=== PATIENT | female | born 2000 | race Caucasian/White ===

== ENCOUNTER 2019-04-19 06:20 | Observation (INO) | payer OTHER ==
[2019-04-19] MEDS: SOD CHLORIDE 0.9% 1,000 ML IV (07:00)
[2019-04-19 07:39] LABS: ADD MAN DIFF? NO
[2019-04-19 07:40] LABS: WHITE BLOOD COUNT 7.8 10^3/ul (4.8-10.8)
[2019-04-19 07:40] LABS: BASOPHILS % 0.4 % (0.0-2.0); EOSINOPHILS # 0.2 10^3/ul (0.0-0.5); EOSINOPHILS % 2.2 % (0.0-7.0); HEMATOCRIT 35.1 % (37.0-47.0); HEMOGLOBIN 10.7 g/dl (12.0-16.0); LYMPHOCYTES % 38.6 % (18.0-55.0); MEAN CORPUSCULAR HEMOGLOBIN 24.7 pg (29.0-33.0); MEAN CORPUSCULAR HGB CONC 30.5 g/dl (32.0-37.0); MEAN CORPUSCULAR VOLUME 80.9 fl (72.0-104.0); MEAN PLATELET VOLUME 9.2 fl (7.4-10.4); MONOCYTE # 0.7 10^3/ul (0.3-0.9); MONOCYTES % 8.8 % (0.0-13.0); NEUTROPHIL # 3.9 10^3/ul (1.6-7.5); NEUTROPHILS % 49.7 % (30.0-74.0); PLATELET COUNT 429 10^3/UL (140-415); RED BLOOD COUNT 4.34 10^6/ul (4.20-5.40); RED CELL DISTRIBUTION WIDTH 14.2 % (11.5-14.5)
[2019-04-19] MEDS: LACTATED RINGER'S 1,000 ML IV ×3 (07:48→20:05)
[2019-04-19 08:00] LABS: ALANINE AMINOTRANSFERASE 26 IU/L (13-69); ALBUMIN 4.3 g/dl (3.3-4.9); ALBUMIN/GLOBULIN RATIO 1.43; ALKALINE PHOSPHATASE 75 IU/L (42-121); ANION GAP 9 (5-13); ASPARTATE AMINO TRANSFERASE 15 IU/L (15-46); BILIRUBIN,INDIRECT 0.3 mg/dl (0-1.1); BILIRUBIN,TOTAL 0.3 mg/dl (0.2-1.3); BLOOD UREA NITROGEN 14 mg/dl (7-20); CALCIUM 9.3 mg/dl (8.4-10.2); CARBON DIOXIDE 26 mmol/L (21-31); CHLORIDE 105 mmol/L (97-110); CREATININE 0.55 mg/dl (0.44-1.00); Estimated GFR > 60 mL/min (>60); GLUCOSE 92 mg/dl (70-220); INR 0.97; POTASSIUM 4.3 mmol/L (3.5-5.1); SODIUM 140 mmol/L (135-144); TOTAL PROTEIN 7.3 g/dl (6.1-8.1)
[2019-04-19 08:01] LABS: PARTIAL THROMBOPLASTIN TIME 32.4 Sec (23.0-35.0)
[2019-04-19] MEDS ORDERED: PROPOFOL 20 ML (09:06)
[2019-04-19] MEDS ORDERED: ONDANSETRON 4 MG INJ ×2 (09:06→12:14)
[2019-04-19] MEDS ORDERED: CEFAZOLIN 1 GM INJ (09:06)
[2019-04-19] MEDS ORDERED: KETOROLAC 30 MG INJ (09:06)
[2019-04-19] MEDS ORDERED: MIDAZOLAM 1 MG/ML 2 ML INJ (09:06)
[2019-04-19] MEDS ORDERED: ROCURONIUM 50 MG INJ (09:06)
[2019-04-19] MEDS ORDERED: LIDOCAINE 1%/EPI (1:100,000) (MDV) 20 ML (09:06)
[2019-04-19] MEDS: CEFAZOLIN 2 GM/50 ML (PMX) 50 ML (FOR WT < 120 KG) IVPB (09:30)
[2019-04-19] MEDS ORDERED: HYDROmorphONE 1 MG/5 ML IV SYRINGE IV (10:30)
[2019-04-19] MEDS ORDERED: PHENYLephrine (100 MCG/ML) 10ML SYG (10:53)
[2019-04-19] MEDS ORDERED: NEOSTIGMINE 3 MG/3 ML SYRINGE (11:26)
[2019-04-19] MEDS ORDERED: GLYCOPYRROLATE 0.4 MG INJ (11:26)
[2019-04-19] MEDS: OXYCODONE/ACETAMINOPHEN (5/325) TAB PO ×3 (12:09→21:48)
[2019-04-19 12:31] LABS: WHITE BLOOD COUNT 27.9 10^3/ul (4.8-10.8)
[2019-04-19 12:31] LABS: ABNORMAL IP MESSAGE 1; HEMATOCRIT 27.9 % (37.0-47.0); HEMOGLOBIN 8.7 g/dl (12.0-16.0); MEAN CORPUSCULAR HEMOGLOBIN 25.1 pg (29.0-33.0); MEAN CORPUSCULAR HGB CONC 31.2 g/dl (32.0-37.0); MEAN CORPUSCULAR VOLUME 80.4 fl (72.0-104.0); MEAN PLATELET VOLUME 9.1 fl (7.4-10.4); PLATELET COUNT 490 10^3/UL (140-415); RED BLOOD COUNT 3.47 10^6/ul (4.20-5.40); RED CELL DISTRIBUTION WIDTH 14.6 % (11.5-14.5)
[2019-04-19 12:32] LABS: HOLD TRANSMISSIONS 1; POSITIVE DIFF @See below
[2019-04-19 12:33] LABS: ADD MAN DIFF? YES
[2019-04-19] MEDS ORDERED: IBUPROFEN 600 MG TAB PO (13:00)
[2019-04-19] MEDS: ONDANSETRON 4 MG INJ IV (13:23)
[2019-04-19 13:43] LABS: ANISOCYTOSIS 1+ (0-0); BAND NEUTROPHILS #M 2.2 10^3/ul (0.0-0.6); BAND NEUTROPHILS % (M) 8 % (0-10); GIANT THROMBO% (M) 1 % (0-0); LYMPHOCYTES #M 2.2 10^3/ul (0.8-2.9); LYMPHOCYTES % (M) 8 % (18-55); MONOCYTE #M 1.6 10^3/ul (0.3-0.9); MONOCYTES % (M) 6 % (0-13); OVALOCYTES 1+ (0-0); PLATELET ESTIMATE NORMAL; PLATELET MORPHOLOGY COMMENT @See below; POIKILOCYTOSIS 1+ (0-0); POLYCHROMASIA 1+ (0-0); RBC MORPHOLOGY COMMENT @See below; REACTIVE LYMPHOCYTES #M 1.3 10^3/ul (0.0-0.0); REACTIVE LYMPHOCYTES% (M) 5 % (0-0); SEGMENTED NEUTROPHILS (M) % 73 % (30-74); SMUDGE%M 8 % (0-0); WBC MORPHOLOGY COMMENT @See below
[2019-04-19 17:15] LABS: ADD MAN DIFF? NO
[2019-04-19 17:18] LABS: BASOPHILS % 0.1 % (0.0-2.0); HEMATOCRIT 26.1 % (37.0-47.0); HEMOGLOBIN 7.9 g/dl (12.0-16.0); LYMPHOCYTES # 0.9 10^3/ul (0.8-2.9); MEAN CORPUSCULAR HEMOGLOBIN 24.6 pg (29.0-33.0); MEAN CORPUSCULAR HGB CONC 30.3 g/dl (32.0-37.0); MEAN CORPUSCULAR VOLUME 81.3 fl (72.0-104.0); MEAN PLATELET VOLUME 9.5 fl (7.4-10.4); MONOCYTES % 5.2 % (0.0-13.0); NEUTROPHIL # 16.6 10^3/ul (1.6-7.5); NEUTROPHILS % 89.1 % (30.0-74.0); PLATELET COUNT 372 10^3/UL (140-415); RED BLOOD COUNT 3.21 10^6/ul (4.20-5.40); RED CELL DISTRIBUTION WIDTH 14.6 % (11.5-14.5)
[2019-04-19 17:18] LABS: WHITE BLOOD COUNT 18.7 10^3/ul (4.8-10.8)
[2019-04-20] MEDS: IBUPROFEN 600 MG TAB PO (06:21)
[2019-04-20] MEDS: ONDANSETRON 4 MG INJ IV ×5 (06:21→23:59)
[2019-04-20 06:53] LABS: ADD MAN DIFF? NO
[2019-04-20 06:58] LABS: WHITE BLOOD COUNT 7.4 10^3/ul (4.8-10.8)
[2019-04-20 06:58] LABS: ABNORMAL IP MESSAGE 1; BASOPHILS % 0.1 % (0.0-2.0); EOSINOPHILS % 0.3 % (0.0-7.0); HEMATOCRIT 21.1 % (37.0-47.0); LYMPHOCYTES # 2.4 10^3/ul (0.8-2.9); LYMPHOCYTES % 32.6 % (18.0-55.0); MEAN CORPUSCULAR HEMOGLOBIN 25.1 pg (29.0-33.0); MEAN CORPUSCULAR HGB CONC 30.8 g/dl (32.0-37.0); MEAN CORPUSCULAR VOLUME 81.5 fl (72.0-104.0); MEAN PLATELET VOLUME 9.8 fl (7.4-10.4); MONOCYTE # 0.8 10^3/ul (0.3-0.9); MONOCYTES % 10.7 % (0.0-13.0); NEUTROPHIL # 4.2 10^3/ul (1.6-7.5); PLATELET COUNT 316 10^3/UL (140-415); RED BLOOD COUNT 2.59 10^6/ul (4.20-5.40); RED CELL DISTRIBUTION WIDTH 14.7 % (11.5-14.5)
[2019-04-20] MEDS: SOD CHLORIDE 0.9% 1,000 ML IV (07:00)
[2019-04-20 07:02] LABS: POSITIVE DIFF @See below
[2019-04-20 07:04] LABS: HEMOGLOBIN 6.5 g/dl (12.0-16.0); PATH REVIEW? YES
[2019-04-20 07:56] LABS: GIANT THROMBO% (M) 3 % (0-0); HYPOCHROMASIA 1+ (0-0); LYMPHOCYTES #M 4.5 10^3/ul (0.8-2.9); LYMPHOCYTES % (M) 61 % (18-55); MONOCYTE #M 0.2 10^3/ul (0.3-0.9); MONOCYTES % (M) 4 % (0-13); PLATELET ESTIMATE NORMAL; SEGMENTED NEUTROPHILS (M) % 35 % (30-74); SMUDGE%M 14 % (0-0)
[2019-04-20] MEDS: OXYCODONE/ACETAMINOPHEN (5/325) TAB PO (08:46)
[2019-04-20 14:35] LABS: IMMEDIATE SPIN CROSSMATCH 1 2
[2019-04-20 21:01] LABS: ADD MAN DIFF? NO
[2019-04-20 21:02] LABS: BASOPHILS % 0.3 % (0.0-2.0); EOSINOPHILS # 0.1 10^3/ul (0.0-0.5); EOSINOPHILS % 0.7 % (0.0-7.0); HEMATOCRIT 31.4 % (37.0-47.0); LYMPHOCYTES # 2.2 10^3/ul (0.8-2.9); LYMPHOCYTES % 23.8 % (18.0-55.0); MEAN CORPUSCULAR HEMOGLOBIN 26.2 pg (29.0-33.0); MEAN CORPUSCULAR HGB CONC 31.8 g/dl (32.0-37.0); MEAN CORPUSCULAR VOLUME 82.4 fl (72.0-104.0); MEAN PLATELET VOLUME 9.3 fl (7.4-10.4); MONOCYTE # 0.8 10^3/ul (0.3-0.9); MONOCYTES % 8.7 % (0.0-13.0); NEUTROPHILS % 66.2 % (30.0-74.0); PLATELET COUNT 316 10^3/UL (140-415); RED BLOOD COUNT 3.81 10^6/ul (4.20-5.40); RED CELL DISTRIBUTION WIDTH 14.5 % (11.5-14.5)
== END 2019-04-21 14:45 | disposition home or self-care (01) ==
LOC: SDS 06:20 → REC 12:39 → PP2 16:50
DX: D27.1 Benign neoplasm of left ovary (principal)
CPT/HCPCS: 36430; 80053; 84703; 85025; 85610; 85730; 86850; 86900; 86901; 86920; 88307